=== PATIENT | male | born 1945 | race American Indian/Alaskan Native ===

== ENCOUNTER 2018-12-30 06:00 | Inpatient (IN) | payer OTHER, MEDICARE ==
[2018-12-30] MEDS ORDERED: Aspirin 325 mg EC Tablets PO STA (06:19)
--- NOTE | 2018-12-30 06:19 | C.PDOC ---
History Of Present Illness Patient presents to the ER after he woke up to use the bathroom and felt a sharp stabbing pain to his left chest wall. He sat down and felt better. Denies SOB. Chief Complaint (Nursing): Chest Pain History Per: Patient History/Exam Limitations: no limitations Onset/Duration Of Symptoms: Hrs Current Symptoms Are (Timing): Still Present Severity: Moderate Pain Scale Rating Of: 4 Quality: Sharp, Other (Stabbing) Associated Symptoms: denies: Dyspnea Modifying Factors: None Exacerbating Factors: None Alleviating Factors: None Recent travel outside of the [place]: No Past Medical History Reviewed: Historical Data, Nursing Documentation, Vital Signs Vital Signs: Last Vital Signs Temp 98.2 F 12/30/18 06:07 Pulse 82 12/30/18 06:07 Resp 22 12/30/18 06:07 BP 200/105 H 12/30/18 06:07 Pulse Ox 96 12/30/18 06:07 - Medical History PMH: HTN (takes meds) - [facility] APPLICATION OF SPLINT (10/25/14) Family History: States: No Known Family Hx - Social History Hx Tobacco Use: No Hx Alcohol Use: No Hx Substance Use: No - Immunization History Hx Tetanus Toxoid Vaccination: No Hx Influenza Vaccination: No Hx Pneumococcal Vaccination: No Review Of Systems Constitutional: Negative for: Fever, Chills Cardiovascular: Positive for: Chest Pain. Negative for: Palpitations Respiratory: Negative for: Cough, Shortness of Breath Gastrointestinal: Negative for: Nausea, Vomiting Neurological: Negative for: Weakness, Numbness Physical Exam - Physical Exam Appears: Non-toxic Skin: Warm, Dry Head: Normacephalic Oral Mucosa: Moist Neck: Trachea Midline, Supple Chest: Symmetrical, No Tenderness Cardiovascular: Rhythm Regular Respiratory: No Rales, No Rhonchi, No Wheezing Gastrointestinal/Abdominal: Soft, No Tenderness Neurological/Psych: Oriented x3 ED Course And Treatment - Laboratory Results Result Diagrams: 12/30/18 06:25 12/30/18 06:25 ECG: Interpreted By Me, Viewed By Me ECG Rhythm: Sinus Rhythm (80), Nonspecific Changes O2 Sat by Pulse Oximetry: 96 (room air) Pulse Ox Interpretation: Normal - Radiology CXR: Interpreted by Me, Viewed By Me CXR Interpretation: Yes: Infiltrates (? rll infiltrate), Cardiomegaly, Other (mild vasc congestion). No: COPD Progress Note: EKG, blood work, CXR, and urinalysis ordered. Aspirin administered. Disposition Discussed With Dr.: Miladis Kenny Comment: accepted the pt on his service and took over the care at 6:54 AM Doctor Will See Patient In The: Hospital Counseled Patient/Family Regarding: Studies Performed, Diagnosis - Disposition Disposition: HOSPITALIZED Disposition Time: 06:18 Condition: FAIR Forms: [facility] (Indonesian) - POA Present On Arrival: None - Clinical Impression Clinical Impression: Chest pain - Scribe Statement The provider has reviewed the documentation as recorded by the Scribe Adarsh Lai All medical record entries made by the Scribe were at my direction and personally dictated by me. I have reviewed the chart and agree that the record accurately reflects my personal performance of the history, physical exam, medical decision making, and the department course for this patient. I have also personally directed, reviewed, and agree with the discharge instructions and di sposition. Decision To Admit - Pt Status Changed To: Hospital Disposition Of: Inpatient - Admit Certification Admit to Inpatient:: After my assessment, the patient will require hospit alization for at least two midnights. This is because of the severity of symptoms shown, intensity of services needed, and/or the medical risk in this patient being treated as an outpatient. - InPatient: Physician Admission Certification: I certify that this patient requires 2 or more midnights of care for the following reason:: After my assessment, the ngoc ent will require hospitalization for at least two midnights. This is because of the severity of symptoms shown, intensity of services needed, and/or the medical risk in this patient being treated as an outpatient. - . Bed Request Type: Telemetry Admitting Physician: Miladis Kenny Patient Diagnosis: Chest pain
[2018-12-30 06:29] LABS: BASO % 0.4 % (0.0-2.0); EOS # 0.1 K/uL (0.0-0.7); EOS % 0.7 % (0.0-4.0); HEMOGLOBIN 14.8 g/dL (12.0-18.0); LYMPH # 1.9 K/uL (1.0-4.3); LYMPH % 24.2 % (20.0-40.0); MEAN CELL VOLUME 91.6 fL (80.0-94.0); MEAN CORPUSCULAR HEMOGLOBIN 30.3 pg (27.0-31.0); MEAN CORPUSCULAR HGB CONC 33.1 g/dL (33.0-37.0); MEAN PLATELET VOLUME 7.5 fL (7.2-11.7); MONO # 1.2 K/uL (0.0-0.8); MONO % 14.6 % (0.0-10.0); NEUT # 4.7 K/uL (1.8-7.0); NEUT % 60.1 % (50.0-75.0); NRBC % 0.1 % (0.0-2.0); RBC 4.88 Mil/uL (4.40-5.90); RED CELL DISTRIBUTION WIDTH 14.3 % (11.5-14.5); WHITE BLOOD COUNT 7.9 K/uL (4.8-10.8)
[2018-12-30 06:38] LABS: INR 1.2; PROTHROMBIN TIME 12.7 SECONDS (9.7-12.2)
[2018-12-30 06:42] LABS: ALB/GLOB RATIO 1.1 (1.0-2.1); ALBUMIN 4.4 g/dL (3.5-5.0); ALT/SGPT 11 U/L (21-72); AST/SGOT 24 U/L (17-59); BLOOD UREA NITROGEN 12 mg/dL (9-20); CALCIUM 8.9 mg/dl (8.6-10.4); GFR NON-AFRICAN AMERICAN > 60; LIPASE 33 U/L (23-300)
[2018-12-30 06:53] LABS: B-TYPE NATRIURETIC PEPTIDE 166 pg/mL (0-900)
[2018-12-30] MEDS ORDERED: Enoxaparin 40 mg Syringe SC STA (06:55)
[2018-12-30] MEDS ORDERED: Enoxaparin 100 mg Syringe ONE (07:01)
--- NOTE | 2018-12-30 09:31 | RAD ---
Chest x-ray single frontal view History: Chest pain. COMPARISON: None available. Findings: Mild venous congestion. Right hilar prominence. Patchy increased markings at both lung bases; right greater left suggestive for infiltrate and or atelectasis. Clinical correlation. Question trace left pleural effusion. Cardiomegaly. Tortuous ectatic aorta. Degenerative changes in the spine and shoulders. Impression: Mild venous congestion. Right hilar prominence. Patchy increased markings at both lung bases; right greater left suggestive for infiltrate and or atelectasis. Clinical correlation. Question trace left pleural effusion. Cardiomegaly. Tortuous ectatic aorta.
[2018-12-30 16:51] VITALS: RESP 20
--- NOTE | 2018-12-30 19:39 | CP.PCM.HP ---
Past Patient History - Past Medical History & Family History Past Medical History?: No - Past Social History Smoking Status: Never Smoked - CARDIAC Hx Hypertension: Yes (takes meds) - MUSCULOSKELETAL/RHEUMATOLOGICAL Hx Falls: No - PSYCHIATRIC Hx Substance Use: No - ANESTHESIA Hx Anesthesia: No Hx Anesthesia Reactions: No Hx Malignant Hyperthermia: No Has any member of the family had a problem w/ anesthesia?: No Meds Allergies/Adverse Reactions: Allergies Allergy/AdvReac Type Severity Reaction Status Date / Time No Known Allergies Allergy Verified 12/30/18 06:10 Physical Exam - Constitutional Appears: Well - Head Exam Head Exam: ATRAUMATIC, NORMAL INSPECTION, NORMOCEPHALIC - Eye Exam Eye Exam: EOMI, Normal appearance, PERRL Pupil Exam: NORMAL ACCOMODATION, PERRL - Neck Exam Neck exam: Positive for: Normal Inspection - Respiratory Exam Respiratory Exam: Decreased Breath Sounds - Cardiovascular Exam Cardiovascular Exam: REGULAR RHYTHM, +S1, +S2 - GI/Abdominal Exam GI & Abdominal Exam: Diminished Bowel Sounds, Soft - Rectal Exam Rectal Exam: Deferred Results - Vital Signs Recent Vital Signs: Last Vital Signs Temp 98.2 F 12/30/18 16:00 Pulse 68 12/30/18 16:00 Resp 20 12/30/18 16:00 BP 147/87 12/30/18 16:00 Pulse Ox 97 12/30/18 16:00 - Labs Result Diagrams: 12/30/18 06:25 12/30/18 06:25 Labs: Laboratory Results - last 24 hr 12/30/18 12/30/18 12/30/18 06:25 06:25 06:25 WBC 7.9 RBC 4.88 Hgb 14.8 Hct 44.7 MCV 91.6 MCH 30.3 MCHC 33.1 RDW 14.3 Plt Count 232 MPV 7.5 Neut % (Auto) 60.1 Lymph % (Auto) 24.2 Crane % (Auto) 14.6 H Eos % (Auto) 0.7 Baso % (Auto) 0.4 Neut # (Auto) 4.7 Lymph # (Auto) 1.9 Crane # (Auto) 1.2 H Eos # (Auto) 0.1 Baso # (Auto) 0.0 PT 12.7 H INR 1.2 APTT 33 Sodium 140 Potassium 4.4 Chloride 105 Carbon Dioxide 28 Anion Gap 11 BUN 12 Creatinine 0.6 L Est GFR ( Amer) > 60 Est GFR (Non-Af Amer) > 60 Random Glucose 105 Calcium 8.9 Total Bilirubin 0.7 AST 24 ALT 11 L Alkaline Phosphatase 113 Troponin I < 0.0120 NT-Pro-B Natriuret Pep 166 Total Protein 8.3 Albumin 4.4 Globulin 3.9 Albumin/Globulin Ratio 1.1 Lipase 33 12/30/18 12/30/18 11:24 14:16 WBC RBC Hgb Hct MCV MCH MCHC RDW Plt Count MPV Neut % (Auto) Lymph % (Auto) Crane % (Auto) Eos % (Auto) Baso % (Auto) Neut # (Auto) Lymph # (Auto) Crane # (Auto) Eos # (Auto) Baso # (Auto) PT INR APTT Sodium Potassium Chloride Carbon Dioxide Anion Gap BUN Creatinine Est GFR ( Amer) Est GFR (Non-Af Amer) Random Glucose Calcium Total Bilirubin AST ALT Alkaline Phosphatase Troponin I < 0.0120 < 0.0120 NT-Pro-B Natriuret Pep Total Protein Albumin Globulin Albumin/Globulin Ratio Lipase
[2018-12-30 23:01] LABS: URINE BILIRUBIN NEGATIVE (NEGATIVE); URINE BLOOD NEGATIVE (NEGATIVE); URINE CLARITY Clear (Clear); URINE COLOR Yellow (YELLOW); URINE GLUCOSE (UA) NORMAL (Normal); URINE LEUKOCYTE ESTERASE NEG Leu/uL (Negative); URINE PROTEIN NEGATIVE (NEGATIVE); URINE UROBILINOGEN NORMAL mg/dL (0.2-1.0)
[2018-12-30 23:23] LABS: CK-MB 0.46 ng/mL (0.0-3.38)
--- NOTE | 2018-12-31 17:52 | CP.PCM.PN ---
Subjective - Date & Time of Evaluation Date of Evaluation: 12/31/18 Time of Evaluation: 10:45 - Subjective Subjective: clinically same Objective - Vital Signs/Intake and Output Vital Signs (last 24 hours): Temp Pulse Resp BP Pulse Ox 97.3 F L 72 20 136/87 99 12/31/18 16:00 12/31/18 16:00 12/31/18 16:00 12/31/18 16:00 12/31/18 16:00 - Medications Medications: Current Medications Aspirin (Aspirin) 325 mg PO DAILY [facility] Last Admin: 12/31/18 09:54 Dose: 325 mg Clopidogrel Bisulfate (Plavix) 75 mg PO DAILY [facility] Last Admin: 12/31/18 09:47 Dose: 75 mg Famotidine (Pepcid) 20 mg PO BID [facility] Last Admin: 12/31/18 09:47 Dose: 20 mg Heparin Sodium (Porcine) (Heparin) 5,000 units SC Q12 [facility] Last Admin: 12/31/18 09:47 Dose: 5,000 units Losartan Potassium (Cozaar) 100 mg PO DAILY [facility] Last Admin: 12/31/18 09:47 Dose: 100 mg - Labs Labs: 12/30/18 06:25 12/30/18 06:25 PT 12.7 SECONDS (9.7-12.2) H 12/30/18 06:25 INR 1.2 12/30/18 06:25 APTT 33 SECONDS (21-34) 12/30/18 06:25
[2019-01-01 00:39] VITALS: O2SAT 96
[2019-01-01 08:00] VITALS: BP 156/94; TEMP 98
[2019-01-01 12:09] VITALS: PULSE 68
--- NOTE | 2019-01-02 00:29 | CON ---
DATE: 01/01/2019 CARDIOLOGY CONSULTATION REASON FOR CONSULTATION: Chest pain. HISTORY OF PRESENT ILLNESS: The patient is a 73-year-old male, originally from [facility] with no known prior cardiac history other than the history of hypertension, presented because of chest pain that is confined to the right pectoral area. The patient denies any associated diaphoresis, dizziness or syncope. The patient is currently chest pain-free. SOCIAL HISTORY: The patient is a nonsmoker and nondrinker. He works as a chef's assistant. MEDICATIONS: Aspirin 325 mg once a day, Cozaar 100 mg once a day, heparin 5000 units subcutaneously twice a day, Pepcid 20 mg p.o. twice a day, Plavix 75 mg once a day. REVIEW OF SYSTEMS: No nausea or vomiting. No fever or chills. No dizziness or syncope. PHYSICAL EXAMINATION: GENERAL: The patient is an elderly male who does not appear to be in acute distress. VITAL SIGNS: Blood pressure 156/94, heart rate 69, temperature 98, respirations 20. HEENT: Normocephalic. NECK: No JVD. CHEST: Clear. HEART: S1 and S2, regular. ABDOMEN: Soft. EXTREMITIES: No edema. LABORATORY DATA: SMA-7: Sodium 140, potassium 4.4, chloride 105, CO2 of 28, glucose 105, BUN 12, creatinine 0.6. Four sets of troponin are negative. INR is 1.2, PTT is 33. CBC: WBC 7.9, hemoglobin 14.8, hematocrit 44.7, platelet count 232,000. Chest x-ray revealed prominent bronchovascular markings, possible right lower lobe infiltrate. EKG revealed sinus rhythm, left axis deviation, poor R-wave progression. Consider old inferior infarct. ASSESSMENT: 1. Chest pain. Myocardial infarction ruled out. 2. 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 3. Hypertension. RECOMMENDATIONS: Continue current aspirin 325 mg once a day, Cozaar at 100 mg once a day, heparin 5000 units subcutaneously twice a day and Plavix 75 mg once a day. Obtain an echocardiographic study. Ray Green MD
--- NOTE | 2019-01-03 08:36 | CARD ---
APPROVED REPORT Date of service: 12/30/2018 EKG Measurement Heart [id number] <Conclusion> Normal sinus rhythm Left axis deviation Minimal voltage criteria for LVH, may be normal variant Inferior infarct, age undetermined Abnormal ECG
--- NOTE | 2019-01-04 12:51 | CARD ---
APPROVED REPORT Date of service: 01/01/2019 EKG Measurement Heart [id number] <Conclusion> Normal sinus rhythm Left axis deviation Left ventricular hypertrophy with QRS widening Abnormal ECG
== END 2019-01-01 16:44 | disposition home or self-care (01) | DRG 313 ==
LOC: C.ER 06:00 → C.6T 06:50
PROVIDERS: ADMIT Internal Medicine Nephrology; ATTEND Internal Medicine Nephrology
DX: R07.89 Other chest pain (principal); I10 Essential (primary) hypertension; R94.31 Abnormal electrocardiogram [ECG] [EKG]